=== PATIENT | female | born 1965 | race Caucasian/White ===

== ENCOUNTER 2019-12-16 14:46 | Emergency (ER) | payer MEDICARE, MEDICAID ==
[~2019-12-16] VITALS: Ht 167.6 cm; Wt 70.5 kg
[~2019-12-16 14:46] MED LIST: ALD50T PO; ERGO500056 PO; FURO40TA4 PO; LACO200T2 PO; LACT10SO32 PO; LEVE500T PO; MAGN400C PO; PANT40TA4 PO; PHEN100C4 PO; RIFA550T PO; VITA-332 PO; ZINC220C12 PO
--- NOTE | 2019-12-16 14:59 | NUR ---
pt.s daughter called and is available to sara ramirez. Courtney [phone]
[2019-12-16] MEDS ORDERED: normal saline 1000ML IV soln IVB ONE (15:15)
--- NOTE | 2019-12-16 15:45 | NUR ---
IV AND LAB DRAW COMPLETED BY SACHA ALVARADO, PT TO CT VIA WHEELCHAIR WITH MECHANIC AND WELDER NOW PER ORDERS. WILL MEDICATE PT WITH NS IV BOLUS UPON RETURN TO BED 05
[2019-12-16 16:11] LABS: LACTIC SEPSIS 2.3 MMOL/L (0.4-2.0)
[2019-12-16 16:15] LABS: BASOPHILS # (AUTO) 0.1 X10'3 (0-0.2); BASOPHILS % (AUTO) 0.6 % (0-1); EOSINOPHILS # (AUTO) 0.3 X10'3 (0-0.9); EOSINOPHILS % (AUTO) 2.7 % (0-6); HEMOGLOBIN 14.9 g/dl (12.0-16.0); LYMPHOCYTES % (AUTO) 21.2 % (21-51); MEAN CORPUSCULAR HEMOGLOBIN 33.5 PG (27.0-31.0); MEAN CORPUSCULAR HGB CONC 35.5 g/dL (33.0-36.5); MEAN CORPUSCULAR VOLUME 94.3 FL (78-98); MONOCYTES # (AUTO) 0.8 X10'3 (0-0.9); MONOCYTES % (AUTO) 8.5 % (2-12); NEUTROPHILS # (AUTO) 6.2 X10'3 (1.8-7.7); RED BLOOD COUNT 4.45 X10'6 (4.20-5.60); RED CELL DISTRIBUTION WIDTH 13.6 % (11.5-14.5)
[2019-12-16 16:19] LABS: MEAN PLATELET VOLUME 8.9 FL (7.4-10.4); PLATELET COUNT 62 X10'3 (140-440); WHITE BLOOD COUNT 9.5 X10'3 (4.5-11.0)
[2019-12-16 16:28] LABS: CLARITY,URINE CLOUDY (Clear); GLUCOSE, URINE NEGATIVE (Neg); KETONES,URINE TRACE mg/dl (Neg); LEUKOCYTE ESTERASE ,URINE NEGATIVE (Neg); NITRITES, URINE NEGATIVE (Neg); OCCULT BLOOD,URINE SMALL (Neg); PROTEIN,URINE NEGATIVE (Neg); UROBILINOGEN,URINE 0.2 E.U/dL (0.2-1.0)
[2019-12-16 16:37] LABS: ALANINE AMINOTRANSFERASE 10 U/L (12-78); ALBUMIN 3.3 G/DL (3.4-5.0); ALKALINE PHOSPHATASE 120 IU/L (46-116); ANION GAP 4 (8-16); ASPARTATE AMINO TRANSFERASE 35 U/L (10-37); BILIRUBIN,TOTAL 4.4 MG/DL (0.1-1.0); BLOOD UREA NITROGEN 14 MG/DL (7-18); BUN/CREATININE RATIO 12.1 (6.6-38.0); CALCIUM 9.3 MG/DL (8.5-10.1); CHLORIDE 100 MMOL/L (99-107); CREATININE 1.16 MG/DL (0.40-0.90); ETHANOL < 0.010 GM/DL (0.0-0.010); GLUCOSE 115 MG/DL (70-104); SODIUM 139 MMOL/L (135-145); TOTAL CARBON DIOXIDE 34.7 MMOL/L (24-32); eGFR 49 ML/MIN
[2019-12-16 16:47] LABS: TOTAL PROTEIN 6.6 G/DL (6.4-8.2)
[2019-12-16 16:47] LABS: COLOR,URINE DARK YELLOW (Yellow); UA COLLECTION TYPE CLN CATCH MIDSTREAM
[2019-12-16 16:48] LABS: POTASSIUM 2.7 MMOL/L (3.5-5.1)
[2019-12-16 16:52] LABS: URINE AMPHETAMINE SCREEN NEGATIVE (Neg); URINE BARBITUATE SCREEN NEGATIVE (Neg); URINE BENZODIAZEPINES SCREEN NEGATIVE (Neg); URINE CANNABINOID SCREEN NEGATIVE (Neg); URINE COCAINE SCREEN NEGATIVE (Neg); URINE METHADONE SCREEN NEGATIVE (Neg); URINE OPIATE SCREEN NEGATIVE (Neg); URINE PHENCYCLIDINE SCREEN NEGATIVE (Neg)
[2019-12-16 16:53] LABS: MUCUS STRANDS NONE SEEN /LPF (Neg); SQUAMOUS EPITHELIAL CELL,UR FEW /LPF (FEW)
[2019-12-16 16:54] LABS: BACTERIA,URINE NONE SEEN /HPF (Neg); RBC,URINE 0-2 /HPF (0-2); WBC,URINE 0-4 /HPF (0-4)
[2019-12-16 16:56] LABS: CAL OXALATE CRYSTALS 1+ /HPF (NEGATIVE)
[2019-12-16] MEDS ORDERED: tranexamic acid 100mg/ml inj. IV ONE (17:00)
[2019-12-16] MEDS ORDERED: potassium Cl 10 mEq/100mL bag IV ONE (17:20)
--- NOTE | 2019-12-16 17:47 | NUR ---
REPORT CALLED DO [facility] TO TRANSPORT PATIENT
[2019-12-16 17:56] VITALS: BP 114/66
== END 2019-12-16 18:03 | disposition short-term general hospital (02) ==
LOC: ER 14:46
DX: S06.5X9A Traumatic subdural hemorrhage with loss of consciousness of unspecified duration, initial encounter (principal); R41.82 Altered mental status, unspecified; K70.30 Alcoholic cirrhosis of liver without ascites; D68.59 Other primary thrombophilia; I10 Essential (primary) hypertension; J45.909 Unspecified asthma, uncomplicated; K21.9 Gastro-esophageal reflux disease without esophagitis; F10.20 Alcohol dependence, uncomplicated; Z79.899 Other long term (current) drug therapy; W18.39XA Other fall on same level, initial encounter; Y93.89 Activity, other specified; Y92.89 Other specified places as the place of occurrence of the external cause; Y99.8 Other external cause status; Y90.9 Presence of alcohol in blood, level not specified
CPT/HCPCS: 36415; 70450; 71045; 80053; 80305; 80320; 81001; 82140; 82948; 83605; 84145; 85025; 85610; 87040; 93005; 96374; 99291; J3480; J7030

== ENCOUNTER 2021-03-09 09:02 | Day surgery (SDC) | payer MEDICARE, MEDICAID ==
[~2021-03-09] VITALS: Ht 165.1 cm; Wt 77.3 kg
[~2021-03-09 09:02] MED LIST changes: -PANT40TA4 PO; +PANT40TA54 PO
[2021-03-09 09:23] VITALS: BP 113/64
[2021-03-09] MEDS ORDERED: LIDOcaine Viscous 15ml cup ONE (09:41)
[2021-03-09] MEDS ORDERED: MIDAZolam 1 MG/ML 5ML VIAL ONE (09:41)
[2021-03-09] MEDS ORDERED: fentaNYL/PF 50MCG/1 ML 2ML syringe ONE (09:41)
[2021-03-09] MEDS ORDERED: LACT10SO3 PO (09:48)
[2021-03-09] MEDS ORDERED: PHEN200C4 PO (09:49)
[2021-03-09 09:58] VITALS: BP 107/62
[2021-03-09 10:08] VITALS: BP 101/69
[2021-03-09 10:18] VITALS: BP 100/65
[2021-03-09 10:28] VITALS: BP 120/77
== END 2021-03-09 10:50 | disposition home or self-care (01) ==
LOC: GI LAB 09:02
PROVIDERS: ATTEND Internal Medicine Gastroenterology
DX: K29.50 Unspecified chronic gastritis without bleeding (principal); K44.9 Diaphragmatic hernia without obstruction or gangrene; K74.60 Unspecified cirrhosis of liver; Z72.89 Other problems related to lifestyle
CPT/HCPCS: 43239; G0500; J2250; J3010; J7040; 88305; 99152; A4620

== ENCOUNTER 2024-09-28 11:59 | Inpatient (IN) | payer MEDICARE, MEDICAID ==
[~2024-09-28] VITALS: Ht 170.2 cm; Wt 72.7 kg
[~2024-09-28 11:59] MED LIST changes: -ERGO500056 PO; +LACT-373 PO; -LACT10SO32 PO; -LEVE500T PO; -PHEN100C4 PO; +PHEN200C4 PO
[2024-09-28 12:55] LABS: BASOPHILS % (AUTO) 0.1 % (0-1); EOSINOPHILS # (AUTO) 0.4 X10'3 (0-0.9); EOSINOPHILS % (AUTO) 3.3 % (0-6); HEMATOCRIT 52.4 % (35.0-45.0); INR 1.8 INR; LYMPHOCYTES # (AUTO) 1.3 X10'3 (1.1-4.8); LYMPHOCYTES % (AUTO) 11.2 % (21-51); MEAN CORPUSCULAR HGB CONC 35.3 g/dL (33.0-36.5); MEAN CORPUSCULAR VOLUME 104.9 FL (78-98); MEAN PLATELET VOLUME 9.9 FL (7.4-10.4); MONOCYTES # (AUTO) 1.3 X10'3 (0-0.9); NEUTROPHILS # (AUTO) 8.5 X10'3 (1.8-7.7); NEUTROPHILS % (AUTO) 74.4 % (42-75); PLATELET COUNT 82 X10'3 (140-440); PROTHROMBIN TIME 17.7 SECONDS (9.0-12.0); WHITE BLOOD COUNT 11.4 X10'3 (4.5-11.0)
[2024-09-28 13:10] LABS: ANION GAP 17 (8-16); BILIRUBIN,DIRECT 4.9 MG/DL (0-0.3); BILIRUBIN,TOTAL 12.2 MG/DL (0.1-1.0); BLOOD UREA NITROGEN 17 MG/DL (7-18); BUN/CREATININE RATIO 13.1 (10.0-20.0); CALCIUM 9.9 MG/DL (8.5-10.1); CHLORIDE 89 MMOL/L (99-107); GLUCOSE 357 MG/DL (70-104); POTASSIUM 3.6 MMOL/L (3.5-5.1); SODIUM 136 MMOL/L (135-145); TOTAL CARBON DIOXIDE 29.8 MMOL/L (24-32); eCRCL 45 ML/MIN; eGFR 42 ML/MIN
[2024-09-28 13:11] LABS: ALANINE AMINOTRANSFERASE 41 U/L (12-78); ALBUMIN 3.4 G/DL (3.4-5.0); ALKALINE PHOSPHATASE 183 IU/L (46-116); ASPARTATE AMINO TRANSFERASE 64 U/L (10-37); ETHANOL < 10 MG/DL (<10)
[2024-09-28 13:15] LABS: ALBUMIN/GLOBULIN RATIO 1.2 (1.1-1.5); TOTAL PROTEIN 6.2 G/DL (6.4-8.2)
[2024-09-28 13:56] LABS: HEMOGLOBIN 18.5 g/dl (12.0-16.0)
[2024-09-28] MEDS: normal saline 1000ml 1,000 ML IV ONE (15:05)
[2024-09-28] MEDS ORDERED: dextrose 50%-water 50ml dispensing syringe IV PRN ×2 (17:50)
[2024-09-28] MEDS ORDERED: potassium Cl 20 mEq SR tablet PO PRN (17:50)
[2024-09-28] MEDS ORDERED: DEXTROSE 15 GM of carb/4 tabs (each vial/BOTTLE has 4 tablets) PO PRN ×2 (17:50)
[2024-09-28] MEDS ORDERED: mag hydrox/Alum hydrox/simeth 30ml oral suspension PO PRN (17:50)
[2024-09-28] MEDS ORDERED: ondansetron/PF 4mg/2ml inj IV PRN (17:50)
[2024-09-28] MEDS ORDERED: magnesium sulf-water 4G/100mL 100 ML IV PRN (17:50)
[2024-09-28] MEDS ORDERED: potassium Cl 40MEQ/1/2NS 520ml 520 ML IV PRN (17:50)
[2024-09-28] MEDS ORDERED: magnesium sulf-water 2g/50mL 50 ML IV PRN (17:50)
[2024-09-28] MEDS ORDERED: magnesium hydroxide 30ml (MOM) UD suspension PO PRN (17:50)
[2024-09-28] MEDS ORDERED: glucagon, human recombinant 1mg kit SUBCUT PRN (17:50)
[2024-09-28] MEDS ORDERED: bisacodyl 10mg suppository rectal RC PRN (17:50)
[2024-09-28] MEDS ORDERED: haloperidol lactate 5mg/ml inj IM PRN (17:50)
[2024-09-28 18:51] LABS: HEMOGLOBIN A1C 5.2 % (4.5-6.2)
[2024-09-28] MEDS: normal saline 1000ml 1,000 ML IV SCH (19:34)
[2024-09-28] MEDS: docusate sod 100mg capsule PO SCH (20:00)
[2024-09-28] MEDS: K and/or MAG REPLACEMENT MC SCH (20:00)
[2024-09-28] MEDS: rifaximin 550mg tablet PO SCH (20:00)
[2024-09-28 20:28] LABS: BILIRUBIN,URINE NEGATIVE (Neg); CLARITY,URINE CLEAR (Clear); COLOR,URINE YELLOW (Yellow); GLUCOSE, URINE >=1000 mg/dl (Neg); KETONES,URINE NEGATIVE (Neg); LEUKOCYTE ESTERASE ,URINE NEGATIVE (Neg); NITRITES, URINE NEGATIVE (Neg); OCCULT BLOOD,URINE TRACE-INTACT (Neg); PROTEIN,URINE NEGATIVE (Neg); UROBILINOGEN,URINE 0.2 E.U/dL (0.2-1.0)
[2024-09-28 20:32] LABS: UA COLLECTION TYPE CLN CATCH MIDSTREAM
[2024-09-28 20:35] LABS: BACTERIA,URINE FEW /HPF (Neg); RBC,URINE 0-2 /HPF (0-2); SQUAMOUS EPITHELIAL CELL,UR FEW /LPF (FEW); TRANSITIONAL EPI CELLS,URINE MODERATE /HPF; WBC,URINE 0-4 /HPF (0-4)
[2024-09-28 20:36] LABS: HYALINE CASTS 0-3 /LPF (NEGATIVE); URINE AMPHETAMINE SCREEN NEGATIVE (Neg); URINE BARBITUATE SCREEN NEGATIVE (Neg); URINE BENZODIAZEPINES SCREEN NEGATIVE (Neg); URINE CANNABINOID SCREEN NEGATIVE (Neg); URINE COCAINE SCREEN NEGATIVE (Neg); URINE METHADONE SCREEN NEGATIVE (Neg); URINE OPIATE SCREEN NEGATIVE (Neg); URINE PHENCYCLIDINE SCREEN NEGATIVE (Neg)
[2024-09-28] MEDS ORDERED: lactulose 20gm/30ml cup PO SCH (21:00)
[2024-09-29] MEDS: insulin glargine (Lantus) pen - multi-dose SQ SCH (01:06)
[2024-09-29] MEDS: INSULIN LISPRO 100 UNIT/ML INSULN.PEN MULTI-DOSE SQ SCH (01:06)
[2024-09-29] MEDS: LORazepam 2 mg/ml vial IV PRN ×2 (01:37→04:35)
[2024-09-29] MEDS: thiamine 100mg/ml 2ml inj. IV SCH (01:37)
[2024-09-29] MEDS: lactulose 20gm/30ml cup PO SCH (01:38)
[2024-09-29 03:38] LABS: BASOPHILS % (AUTO) 0.3 % (0-1); EOSINOPHILS # (AUTO) 0.3 X10'3 (0-0.9); EOSINOPHILS % (AUTO) 3.8 % (0-6); HEMATOCRIT 47.8 % (35.0-45.0); HEMOGLOBIN 16.9 g/dl (12.0-16.0); LYMPHOCYTES # (AUTO) 1.2 X10'3 (1.1-4.8); LYMPHOCYTES % (AUTO) 13.7 % (21-51); MEAN CORPUSCULAR HEMOGLOBIN 37.1 PG (27.0-31.0); MEAN CORPUSCULAR HGB CONC 35.3 g/dL (33.0-36.5); MEAN PLATELET VOLUME 9.5 FL (7.4-10.4); MONOCYTES # (AUTO) 1.1 X10'3 (0-0.9); MONOCYTES % (AUTO) 12.6 % (2-12); NEUTROPHILS # (AUTO) 6.2 X10'3 (1.8-7.7); NEUTROPHILS % (AUTO) 69.6 % (42-75); PLATELET COUNT 53 X10'3 (140-440); RED BLOOD COUNT 4.55 X10'6 (4.20-5.60); RED CELL DISTRIBUTION WIDTH 15.3 % (11.5-14.5)
[2024-09-29 03:51] LABS: INR 1.8 INR; PROTHROMBIN TIME 18.5 SECONDS (9.0-12.0)
[2024-09-29 04:15] LABS: ALANINE AMINOTRANSFERASE 36 U/L (12-78); ALBUMIN 2.8 G/DL (3.4-5.0); ALKALINE PHOSPHATASE 154 IU/L (46-116); AMYLASE 61 U/L (25-115); ANION GAP 10 (8-16); ASPARTATE AMINO TRANSFERASE 56 U/L (10-37); BILIRUBIN,TOTAL 10.6 MG/DL (0.1-1.0); BLOOD UREA NITROGEN 15 MG/DL (7-18); BUN/CREATININE RATIO 17.6 (10.0-20.0); CALCIUM 8.6 MG/DL (8.5-10.1); CHLORIDE 99 MMOL/L (99-107); CREATININE 0.85 MG/DL (0.40-0.90); FREE T4 (FREE THYROXINE) 1.56 NG/DL (0.73-1.40); GLUCOSE 189 MG/DL (70-104); LIPASE 33 U/L (16-77); SODIUM 142 MMOL/L (135-145); THYROID STIMULATING HORMONE 1.15 ulU/ml (0.34-4.50); TOTAL CARBON DIOXIDE 33.5 MMOL/L (24-32); eCRCL 69 ML/MIN; eGFR 68 ML/MIN
[2024-09-29 04:16] LABS: ALBUMIN/GLOBULIN RATIO 1.2 (1.1-1.5); PHOSPHORUS 2.5 MG/DL (2.3-4.5); POTASSIUM 3.5 MMOL/L (3.5-5.1); TOTAL PROTEIN 5.2 G/DL (6.4-8.2)
[2024-09-29 04:18] LABS: PLATELET ESTIMATE DECREASED
[2024-09-29] MEDS: multivitamins, therapeutics tablet PO SCH (08:00)
[2024-09-29 08:45] VITALS: BP 94/39; PULSE 70; RESP 16; TEMP 97.5; O2SAT 94
[2024-09-29 09:15] VITALS: RESP 18
[2024-09-29 18:00] VITALS: BP 118/82; PULSE 82; RESP 14; TEMP 97.8; O2SAT 92
[2024-09-29 20:00] VITALS: RESP 16
[2024-09-29 22:00] VITALS: BP 145/126; PULSE 71; RESP 22; TEMP 97.1; O2SAT 97
[2024-09-30 05:34] LABS: BASOPHILS % (AUTO) 0.1 % (0-1); EOSINOPHILS # (AUTO) 0.2 X10'3 (0-0.9); EOSINOPHILS % (AUTO) 4.1 % (0-6); HEMATOCRIT 44.2 % (35.0-45.0); HEMOGLOBIN 15.5 g/dl (12.0-16.0); LYMPHOCYTES % (AUTO) 19.6 % (21-51); MEAN CORPUSCULAR HEMOGLOBIN 37.6 PG (27.0-31.0); MEAN CORPUSCULAR HGB CONC 35.2 g/dL (33.0-36.5); MEAN CORPUSCULAR VOLUME 106.9 FL (78-98); MEAN PLATELET VOLUME 9.3 FL (7.4-10.4); MONOCYTES # (AUTO) 0.6 X10'3 (0-0.9); MONOCYTES % (AUTO) 11.9 % (2-12); NEUTROPHILS # (AUTO) 3.4 X10'3 (1.8-7.7); NEUTROPHILS % (AUTO) 64.3 % (42-75); RED BLOOD COUNT 4.14 X10'6 (4.20-5.60); RED CELL DISTRIBUTION WIDTH 14.8 % (11.5-14.5); WHITE BLOOD COUNT 5.3 X10'3 (4.5-11.0)
[2024-09-30 05:37] LABS: PLATELET COUNT 37 X10'3 (140-440)
[2024-09-30 05:55] LABS: INR 1.7 INR; PROTHROMBIN TIME 17.5 SECONDS (9.0-12.0)
[2024-09-30 06:00] VITALS: BP 101/67; PULSE 80; RESP 20; TEMP 98.5; O2SAT 100
[2024-09-30 06:00] LABS: ALANINE AMINOTRANSFERASE 37 U/L (12-78); ALBUMIN 2.7 G/DL (3.4-5.0); ALKALINE PHOSPHATASE 150 IU/L (46-116); AMYLASE 57 U/L (25-115); ANION GAP 8 (8-16); ASPARTATE AMINO TRANSFERASE 62 U/L (10-37); BILIRUBIN,TOTAL 9.1 MG/DL (0.1-1.0); BLOOD UREA NITROGEN 14 MG/DL (7-18); BUN/CREATININE RATIO 17.7 (10.0-20.0); CHLORIDE 106 MMOL/L (99-107); CREATININE 0.79 MG/DL (0.40-0.90); GLUCOSE 151 MG/DL (70-104); LIPASE 30 U/L (16-77); MAGNESIUM 1.8 MG/DL (1.5-2.4); SODIUM 146 MMOL/L (135-145); TOTAL CARBON DIOXIDE 32.5 MMOL/L (24-32); eCRCL 75 ML/MIN; eGFR 74 ML/MIN
[2024-09-30 06:01] LABS: ALBUMIN/GLOBULIN RATIO 1.2 (1.1-1.5); PHOSPHORUS 2.1 MG/DL (2.3-4.5); POTASSIUM 3.4 MMOL/L (3.5-5.1); TOTAL PROTEIN 4.9 G/DL (6.4-8.2)
[2024-09-30 06:08] LABS: CALCIUM 8.1 MG/DL (8.5-10.1)
[2024-09-30] MEDS: potassium Cl 20 mEq SR tablet PO PRN (09:03)
[2024-09-30 11:00] VITALS: PULSE 94; RESP 18; TEMP 97.9; O2SAT 97
[2024-09-30] MEDS: lactulose 20gm/30ml cup PO SCH ×2 (14:00→22:15)
[2024-09-30 15:00] VITALS: BP_SYST 109; BP_SYST 189; BP_DIAS 47; BP_DIAS 80; PULSE 81; PULSE 96; RESP 17; RESP 18; TEMP 97.3; O2SAT 95; O2SAT 99
[2024-09-30] MEDS: acetaminophen 325mg tablet PO PRN (17:08)
[2024-09-30 18:00] VITALS: BP 103/89; PULSE 74; RESP 18; TEMP 97.6; O2SAT 95
[2024-09-30 20:00] VITALS: RESP 18; O2SAT 95
[2024-09-30 22:00] VITALS: BP 122/49; PULSE 59; RESP 16; TEMP 98.2; O2SAT 96
[2024-10-01 05:19] LABS: BASOPHILS % (AUTO) 0.6 % (0-1); EOSINOPHILS # (AUTO) 0.3 X10'3 (0-0.9); HEMOGLOBIN 14.8 g/dl (12.0-16.0); MEAN PLATELET VOLUME 8.8 FL (7.4-10.4); MONOCYTES # (AUTO) 0.7 X10'3 (0-0.9); NEUTROPHILS # (AUTO) 3.9 X10'3 (1.8-7.7); RED BLOOD COUNT 3.95 X10'6 (4.20-5.60)
[2024-10-01 05:20] LABS: EOSINOPHILS % (AUTO) 4.3 % (0-6); LYMPHOCYTES % (AUTO) 17.5 % (21-51); MEAN CORPUSCULAR HEMOGLOBIN 37.5 PG (27.0-31.0); MEAN CORPUSCULAR HGB CONC 35.2 g/dL (33.0-36.5); MEAN CORPUSCULAR VOLUME 106.4 FL (78-98); MONOCYTES % (AUTO) 11.4 % (2-12); NEUTROPHILS % (AUTO) 66.2 % (42-75); RED CELL DISTRIBUTION WIDTH 15.3 % (11.5-14.5); WHITE BLOOD COUNT 5.8 X10'3 (4.5-11.0)
[2024-10-01 05:23] LABS: PLATELET COUNT 33 X10'3 (140-440)
[2024-10-01 05:30] LABS: INR 1.8 INR; PROTHROMBIN TIME 18.4 SECONDS (9.0-12.0)
[2024-10-01 05:34] LABS: ALANINE AMINOTRANSFERASE 35 U/L (12-78); ALBUMIN 2.5 G/DL (3.4-5.0); ALKALINE PHOSPHATASE 145 IU/L (46-116); AMYLASE 53 U/L (25-115); ANION GAP 3 (8-16); ASPARTATE AMINO TRANSFERASE 49 U/L (10-37); BILIRUBIN,TOTAL 6.5 MG/DL (0.1-1.0); BLOOD UREA NITROGEN 10 MG/DL (7-18); BUN/CREATININE RATIO 13.2 (10.0-20.0); CALCIUM 8.9 MG/DL (8.5-10.1); CHLORIDE 110 MMOL/L (99-107); CREATININE 0.76 MG/DL (0.40-0.90); GLUCOSE 179 MG/DL (70-104); LIPASE 52 U/L (16-77); MAGNESIUM 1.8 MG/DL (1.5-2.4); SODIUM 143 MMOL/L (135-145); TOTAL CARBON DIOXIDE 30.1 MMOL/L (24-32); eCRCL 78 ML/MIN; eGFR 78 ML/MIN
[2024-10-01 06:00] VITALS: BP 104/58; PULSE 82; RESP 16; TEMP 98.1; O2SAT 96
[2024-10-01 06:07] LABS: ALBUMIN/GLOBULIN RATIO 1.3 (1.1-1.5); PHOSPHORUS 2.6 MG/DL (2.3-4.5); POTASSIUM 4.4 MMOL/L (3.5-5.1); TOTAL PROTEIN 4.5 G/DL (6.4-8.2)
[2024-10-01 09:07] VITALS: RESP 18; O2SAT 98
[2024-10-01 10:00] VITALS: BP 111/70; PULSE 82; RESP 16; TEMP 98.2; O2SAT 91
[2024-10-01 20:00] VITALS: RESP 16; O2SAT 97
[2024-10-01 22:00] VITALS: BP 111/68; PULSE 78; RESP 16; TEMP 98.1; O2SAT 93
[2024-10-02 05:36] LABS: BASOPHILS % (AUTO) 0.1 % (0-1); EOSINOPHILS # (AUTO) 0.3 X10'3 (0-0.9); EOSINOPHILS % (AUTO) 5.3 % (0-6); HEMATOCRIT 42.4 % (35.0-45.0); HEMOGLOBIN 14.9 g/dl (12.0-16.0); LYMPHOCYTES # (AUTO) 1.2 X10'3 (1.1-4.8); LYMPHOCYTES % (AUTO) 18.8 % (21-51); MEAN CORPUSCULAR HEMOGLOBIN 37.8 PG (27.0-31.0); MEAN CORPUSCULAR HGB CONC 35.2 g/dL (33.0-36.5); MEAN CORPUSCULAR VOLUME 107.4 FL (78-98); MEAN PLATELET VOLUME 8.6 FL (7.4-10.4); MONOCYTES # (AUTO) 0.7 X10'3 (0-0.9); MONOCYTES % (AUTO) 10.2 % (2-12); NEUTROPHILS # (AUTO) 4.3 X10'3 (1.8-7.7); NEUTROPHILS % (AUTO) 65.6 % (42-75); RED BLOOD COUNT 3.95 X10'6 (4.20-5.60); RED CELL DISTRIBUTION WIDTH 15.4 % (11.5-14.5); WHITE BLOOD COUNT 6.6 X10'3 (4.5-11.0)
[2024-10-02 05:40] LABS: PLATELET COUNT 31 X10'3 (140-440)
[2024-10-02 05:51] LABS: INR 1.8 INR; PROTHROMBIN TIME 18.5 SECONDS (9.0-12.0)
[2024-10-02 06:01] LABS: ALANINE AMINOTRANSFERASE 30 U/L (12-78); ALBUMIN 2.2 G/DL (3.4-5.0); ALKALINE PHOSPHATASE 146 IU/L (46-116); AMYLASE 45 U/L (25-115); ANION GAP 5 (8-16); ASPARTATE AMINO TRANSFERASE 48 U/L (10-37); BILIRUBIN,TOTAL 6.3 MG/DL (0.1-1.0); BLOOD UREA NITROGEN 7 MG/DL (7-18); BUN/CREATININE RATIO 11.5 (10.0-20.0); CALCIUM 7.8 MG/DL (8.5-10.1); CHLORIDE 110 MMOL/L (99-107); CREATININE 0.61 MG/DL (0.40-0.90); GLUCOSE 143 MG/DL (70-104); LIPASE 37 U/L (16-77); MAGNESIUM 1.2 MG/DL (1.5-2.4); POTASSIUM 3.9 MMOL/L (3.5-5.1); SODIUM 142 MMOL/L (135-145); TOTAL CARBON DIOXIDE 26.7 MMOL/L (24-32); eCRCL 97 ML/MIN; eGFR > 90 ML/MIN
[2024-10-02 06:02] LABS: PHOSPHORUS 2.4 MG/DL (2.3-4.5); TOTAL PROTEIN 4.5 G/DL (6.4-8.2)
[2024-10-02 08:00] VITALS: RESP 14; O2SAT 99
[2024-10-02] MEDS ORDERED: potassium Cl 40MEQ/1/2NS 520ml 520 ML IV PRN (09:50)
[2024-10-02] MEDS ORDERED: magnesium sulf-water 2g/50mL 50 ML IV PRN (09:50)
[2024-10-02] MEDS ORDERED: magnesium sulf-water 4G/100mL 100 ML IV PRN (09:50)
[2024-10-02] MEDS ORDERED: potassium Cl 20 mEq SR tablet PO PRN ×2 (09:50)
[2024-10-02] MEDS ORDERED: loperamide 2mg capsule PO PRN (09:55)
[2024-10-02] MEDS ORDERED: LORazepam 2 mg/ml vial IV PRN (10:00)
[2024-10-02] MEDS ORDERED: LORazepam 1 MG tablet PO PRN (10:00)
[2024-10-02] MEDS: lactulose 20gm/30ml cup PO SCH (12:32)
[2024-10-02 18:00] VITALS: BP 128/51; PULSE 93; RESP 24; TEMP 98.7; O2SAT 91
[2024-10-02 19:00] VITALS: RESP 24; O2SAT 97
[2024-10-02] MEDS: K and/or MAG REPLACEMENT MC SCH (20:00)
[2024-10-02] MEDS ORDERED: lactulose 20gm/30ml cup PO SCH (20:00)
[2024-10-02] MEDS: magnesium Cl slow-release 64mg tablet PO PRN (20:14)
[2024-10-02 22:00] VITALS: BP 108/68; PULSE 86; RESP 16; TEMP 98; O2SAT 93
[2024-10-03 04:58] LABS: BASOPHILS % (AUTO) 0.4 % (0-1); EOSINOPHILS # (AUTO) 0.3 X10'3 (0-0.9); EOSINOPHILS % (AUTO) 4.6 % (0-6); HEMATOCRIT 43.1 % (35.0-45.0); HEMOGLOBIN 15.2 g/dl (12.0-16.0); LYMPHOCYTES # (AUTO) 1.2 X10'3 (1.1-4.8); LYMPHOCYTES % (AUTO) 17.8 % (21-51); MEAN CORPUSCULAR HEMOGLOBIN 37.8 PG (27.0-31.0); MEAN CORPUSCULAR HGB CONC 35.2 g/dL (33.0-36.5); MEAN CORPUSCULAR VOLUME 107.4 FL (78-98); MEAN PLATELET VOLUME 8.8 FL (7.4-10.4); MONOCYTES # (AUTO) 0.7 X10'3 (0-0.9); MONOCYTES % (AUTO) 10.9 % (2-12); NEUTROPHILS # (AUTO) 4.4 X10'3 (1.8-7.7); NEUTROPHILS % (AUTO) 66.3 % (42-75); RED BLOOD COUNT 4.01 X10'6 (4.20-5.60); RED CELL DISTRIBUTION WIDTH 15.7 % (11.5-14.5); WHITE BLOOD COUNT 6.7 X10'3 (4.5-11.0)
[2024-10-03 05:07] LABS: INR 1.8 INR; PROTHROMBIN TIME 17.7 SECONDS (9.0-12.0)
[2024-10-03 05:10] LABS: PLATELET COUNT 35 X10'3 (140-440)
[2024-10-03 05:16] LABS: ALANINE AMINOTRANSFERASE 29 U/L (12-78); ALBUMIN 2.1 G/DL (3.4-5.0); ALBUMIN/GLOBULIN RATIO 0.9 (1.1-1.5); ALKALINE PHOSPHATASE 148 IU/L (46-116); AMYLASE 53 U/L (25-115); ANION GAP 6 (8-16); ASPARTATE AMINO TRANSFERASE 46 U/L (10-37); BILIRUBIN,TOTAL 6.9 MG/DL (0.1-1.0); BLOOD UREA NITROGEN 8 MG/DL (7-18); BUN/CREATININE RATIO 13.3 (10.0-20.0); CALCIUM 8.6 MG/DL (8.5-10.1); CHLORIDE 107 MMOL/L (99-107); GLUCOSE 201 MG/DL (70-104); LIPASE 39 U/L (16-77); MAGNESIUM 1.9 MG/DL (1.5-2.4); SODIUM 139 MMOL/L (135-145); TOTAL CARBON DIOXIDE 25.9 MMOL/L (24-32); TOTAL PROTEIN 4.4 G/DL (6.4-8.2); eCRCL 98 ML/MIN; eGFR > 90 ML/MIN
[2024-10-03 06:00] VITALS: BP 107/66; PULSE 83; RESP 18; TEMP 98.2; O2SAT 94
[2024-10-03] MEDS ORDERED: TRAZ-256 PO (07:42)
[2024-10-03] MEDS ORDERED: METF-900 PO (07:42)
[2024-10-03] MEDS ORDERED: EMPA25TA PO (07:42)
[2024-10-03 08:00] VITALS: RESP 16; O2SAT 94
[2024-10-03] MEDS: folic acid 1mg tablet PO SCH (09:00)
[2024-10-03] MEDS: thiamine 100mg tablet PO SCH (09:00)
[2024-10-03 10:00] VITALS: BP 102/62; PULSE 86; RESP 18; TEMP 98.7; O2SAT 96
[2024-10-03 18:00] VITALS: BP 112/55; PULSE 71; RESP 13; TEMP 98.5; O2SAT 91
[2024-10-03 20:00] VITALS: RESP 13; O2SAT 91
[2024-10-03 22:00] VITALS: BP 115/64; PULSE 75; RESP 17; TEMP 98.7; O2SAT 93
[2024-10-04 07:29] VITALS: BP 106/56; PULSE 79; RESP 14; TEMP 98; O2SAT 94
[2024-10-04 08:00] VITALS: RESP 16
[2024-10-04 10:00] VITALS: BP 113/69; PULSE 86; RESP 20; TEMP 97.6; O2SAT 95
[2024-10-04] MEDS ORDERED: MULT-25 PO (10:14)
[2024-10-04] MEDS ORDERED: thiamine tablet PO (10:14)
[2024-10-04] MEDS ORDERED: FOLI1TAB27 PO (10:14)
[2024-10-04] MEDS ORDERED: LACT10SO7 PO (12:47)
== END 2024-10-04 14:50 | disposition home or self-care (01) | DRG 441 ==
LOC: ER 12:00 → ED HOLD 17:58 → EDBEDREQ 19:03 → ED HOLD 09-29 02:49 → SUR 3N 09-29 07:49
PROVIDERS: ADMIT Family Medicine; ATTEND Internal Medicine
DX: K76.82 Hepatic encephalopathy (principal); G93.41 Metabolic encephalopathy; N17.0 Acute kidney failure with tubular necrosis; K70.30 Alcoholic cirrhosis of liver without ascites; J45.909 Unspecified asthma, uncomplicated; I10 Essential (primary) hypertension; R29.6 Repeated falls; G40.909 Epilepsy, unspecified, not intractable, without status epilepticus; E86.0 Dehydration; E11.9 Type 2 diabetes mellitus without complications; D69.59 Other secondary thrombocytopenia; K21.9 Gastro-esophageal reflux disease without esophagitis; R26.89 Other abnormalities of gait and mobility; K72.10 Chronic hepatic failure without coma; Z79.899 Other long term (current) drug therapy; Z82.49 Family history of ischemic heart disease and other diseases of the circulatory system; Z79.84 Long term (current) use of oral hypoglycemic drugs
CPT/HCPCS: 36415; 70450; 71045; 72125; 72128; 72131; 74018; 76700; 80048; 80053; 80076; 80305; 80320; 81001; 82140; 82150; 82948; 83036; 83690; 83735; 84100; 84439; 84443; 85008; 85025; 85610; 87081; 92508; 92616; 97110; 97116; 97161; 97530; 97535; 99285; A4615; A6213; A6258; G0378; J1815; J2060; J3411; J7030